=== PATIENT | male | born 1955 | race Two or more races ===

== ENCOUNTER 2016-07-28 06:57 | Day surgery (SDC) | payer MEDICARE ==
[2016-07-28] MEDS ORDERED: LIDOCAINE 1% W/EPI 1:200,000 MPF 30ML SQ ONE ×2 (12:25→13:23)
[2016-07-28] MEDS ORDERED: BUPIVACAINE 0.5% W/EPI MPF 30 ML VIAL IVP ONE ×2 (12:25→13:23)
[2016-07-28] MEDS ORDERED: DEXAMETHASONE PRESERVATIVE FREE 10MG/ML VIAL IV ONE ×2 (12:25→13:23)
[2016-07-28] MEDS ORDERED: FENTANYL PF 100MCG/2ML VIAL IV ONE (14:00)
[2016-07-28] MEDS ORDERED: *PACU ONLY* KETAMINE HCL 10 MG/ML (20ML) VIAL IV ONE (14:00)
[2016-07-28] MEDS ORDERED: MIDAZOLAM HCL 2MG/2ML VIAL IV ONE ×2 (14:00)
[2016-07-28] MEDS ORDERED: PROPOFOL 10 MG/ML VIAL IV ONE (14:00)
--- NOTE | 2016-07-29 11:10 | Operative Note ---
DATE OF SURGERY: 07/28/2016 PREOPERATIVE DIAGNOSIS: Cervical spondylosis without myelopathy, ICD10 M47.812. POSTOPERATIVE DIAGNOSIS: OPERATION: Radiofrequency rhizotomy, bilateral cervical facets 4-5, 5-6, 6-7 Anesthesia: Local sedation. Anesthesia Provider: Vanessa Rubin CRNA Indication: This patient presents with neck pain. Examination with attention to cervical spine, range of motion does cause pain in the neck with extension. Diagnostics show a primary 5-6 disk with osteophytic spur formation and multiple facet changes. Facet series and previous rhizotomy with a 90% pain control. Due to failure of all other therapies and the success of the previous facet and rhizotomy, he is here for repeat rhizotomy. PROCEDURE: Intravenous line, vital sign monitoring, IV sedation, prepped and draped in sterile technique with imaging, and the following performed. Cervical facet levels of at 4-5, 5-6, 6-7 were identified and marked bilaterally. Skin infiltrated. A 20 gauge rhizotomy cannula positioned. Stimulation trial was conducted. Rhizotomy burn performed. Local anti-inflammatory in this site. Topical antibiotic and sterile dressing applied. Will monitor and evaluate. DO LEONELA Genao
== END 2016-07-28 09:15 | disposition home or self-care (01) ==
LOC: SUR 06:57
PROVIDERS: ATTEND Pain Medicine Interventional Pain Medicine
DX: M47.812 Spondylosis without myelopathy or radiculopathy, cervical region (principal); I10 Essential (primary) hypertension
CPT/HCPCS: 64633; 64634 ×2; 01936; J1100; J3010

== ENCOUNTER 2017-03-23 07:17 | Day surgery (SDC) | payer MEDICARE ==
[2017-03-23] MEDS ORDERED: LIDOCAINE 2% MDV (20MG/ML) 20ML VIAL IV ONE (07:18)
[2017-03-23] MEDS ORDERED: FENTANYL PF 100MCG/2ML VIAL IV ONE (07:18)
[2017-03-23] MEDS ORDERED: BUPIVACAINE 0.75% W/EPI MPF 30ML VIAL IVP ONE (07:18)
[2017-03-23] MEDS ORDERED: DEXAMETHASONE PRESERVATIVE FREE 10MG/ML VIAL IV ONE (07:18)
[2017-03-23] MEDS ORDERED: MIDAZOLAM HCL 2MG/2ML VIAL IV ONE (07:18)
[2017-03-23] MEDS ORDERED: PROPOFOL 10 MG/ML VIAL IV ONE (07:18)
[2017-03-23] MEDS ORDERED: LIDOCAINE 1% W/EPI 1:200,000 MPF 30ML SQ ONE (07:18)
--- NOTE | 2017-03-24 05:28 | Operative Note - [facility] ---
DATE OF SURGERY: 03/23/2017. PREOPERATIVE DIAGNOSIS: CERVICAL SPONDYLOSIS WITHOUT MYELOPATHY, ICD-10 CODE M47.812. POSTOPERATIVE DIAGNOSIS: CERVICAL SPONDYLOSIS WITHOUT MYELOPATHY, ICD-10 CODE M47.812. OPERATION: Radiofrequency rhizotomy, bilateral cervical facets 5-6 and 6-7. SURGEON: Mike Medina D.O. ANESTHESIA: Local sedation. ANESTHESIA PROVIDER: Demarco Harrison CRNA INDICATION: This patient presents with cervical spine pain. Examination shows tenderness in the cervical spine. Range of motion causes pain in the neck with extension. Diagnostics show extensive spondylosis. A previous facet series provided greater than 75 percent pain control. Due to the failure of therapy, he is here for rhizotomy for more long-term relief. PROCEDURE: Intravenous line, vital sign monitoring, and intravenous sedation. Prepped and draped with sterile technique. Cervical facet levels at 5-6 and 6- 7 were identified and marked bilaterally. The skin was infiltrated and a 20- gauge rhizotomy canula was positioned. Stimulation trial was conducted and rhizotomy burn was performed. Local with anti-inflammatory into the sites. Topical antibiotic and sterile dressing were applied. Will monitor and evaluate. JOB NUMBER: [id number] cc: Per Howard M.D. MTDD
== END 2017-03-23 10:00 | disposition home or self-care (01) ==
LOC: SUR 07:17
PROVIDERS: ATTEND Pain Medicine Interventional Pain Medicine
DX: M47.812 Spondylosis without myelopathy or radiculopathy, cervical region (principal); I10 Essential (primary) hypertension
CPT/HCPCS: 64633; 64634; 01936; J1100

== ENCOUNTER 2017-10-26 07:21 | Day surgery (SDC) | payer MEDICARE ==
[2017-10-26] MEDS ORDERED: BUPIVACAINE 0.5% W/EPI MPF 30 ML VIAL IVP ONE (07:22)
[2017-10-26] MEDS ORDERED: LIDOCAINE 1% W/EPI 1:200,000 MPF 30ML SQ ONE (07:22)
--- NOTE | 2017-10-27 20:32 | Operative Note - [facility] ---
DATE OF SURGERY: 10/26/17 PREOPERATIVE DIAGNOSIS: CERVICAL SPONDYLOSIS WITHOUT MYELOPATHY, ICD-10 CODE = M47.812. SURGERY: 1. RADIOFREQUENCY RHIZOTOMY BILATERAL CERVICAL FACETS 5-6 AND 6-7. 2. GREATER OCCIPITAL NERVE BLOCK BILATERALLY. SURGEON: ADRIENNE MERCHANT D.O. ANESTHESIA: LOCAL SEDATION. ANESTHESIA PROVIDER: DOREEN SORIA CRNA INDICATIONS: This patient presents with neck pain. Examination showed tenderness in the cervical spine. Range of motion does cause pain in the next with extension. Diagnostic imaging showed extensive spondylosis. Due to the failure of therapies and the success of a facet series, the patient is here for rhizotomy for more termite treater helper relief. We are also blocking symptomatically the occipital nerves bilaterally. SURGERY: Intravenous line, vital sign monitoring, IV sedation by Anesthesia. Patient positioned prone. Sterile prep and sterile technique. Cervical facet levels at 5-6 and 6-7 were identified and marked bilaterally. Skin infiltrated. #20 gauge rhizotomy cannulae positioned, stimulation trials conducted. Rhizotomy burn performed. Local with anti-inflammatory into sites. Topical antibiotic and sterile dressing applied. A prep along the suboccipital rim. Using a #25 gauge needle, the greater occipital nerve was blocked, first left then right, with local anesthetic with corticosteroid. All areas cleaned. Topical antibiotic and sterile dressing applied. Will monitor and evaluate. cc: Dr. Per cardenas JOB NUMBER: [id number] MTDD
== END 2017-10-26 09:40 | disposition home or self-care (01) ==
LOC: SUR 07:21
PROVIDERS: ATTEND Pain Medicine Interventional Pain Medicine
DX: M47.812 Spondylosis without myelopathy or radiculopathy, cervical region (principal); I10 Essential (primary) hypertension; F98.8 Other specified behavioral and emotional disorders with onset usually occurring in childhood and adolescence

== ENCOUNTER 2018-05-12 08:45 | Day surgery (SDC) | payer MEDICARE ==
--- NOTE | 2018-05-11 17:32 | History and Physical - [place] ---
DATE OF EVALUATION: 05/11/18 CHIEF COMPLAINT/HISTORY OF CHIEF COMPLAINT: This patient with a history of a post lumbar laminectomy radiculopathy had a spinal cord stimulator trial conducted on 05/01/18 with 75 plus percent pain control. Due to the failure of other conservative therapies, physical therapy, biomechanical treatments did not work. Pain clinic treatments did not provide long-term success, and no further surgical options existed. He is here for implantation of a permanent system. PAST MEDICAL HISTORY: Hypertension. Chronic migraine headaches. PAST SURGICAL HISTORY: Hand surgery. Spinal surgery. FAMILY HISTORY: Coronary artery disease. Cerebrovascular disease. Hypertension. SOCIAL HISTORY: Noncontributory. PHYSICAL EXAMINATION: GENERAL: Height and weight are not known. VITAL SIGNS: Not available. HEENT: Within normal limits. LUNGS: Clear. HEART: Rapid and regular. ABDOMEN: Nontender. MUSCULOSKELETAL: Examination of the musculoskeletal system shows a surgical lumbar spinal scar midline. Range of motion produces pain throughout the low back and extending into both lower extremities across the front and back surface. There appear to be mild sensor motor loss and weakness in both lower extremities. An assist device is utilized. NEUROLOGIC: Cranial nerves are intact. IMPRESSION: POST LUMBAR LAMINECTOMY SYNDROME, ICD-10 CODE = M96.1 WITH RADICULOPATHY ICD-10 CODE = M54.16 AND M54.17. PLAN: The patient is here for implantation of a permanent spinal cord stimulator after the failure of conservative therapy and the success of the stimulator trial. The procedure will be considered outpatient, an overnight stay will be evaluated. cc: Dr. Per Howard JOB NUMBER: [id number] [facility]
[~2018-05-12 08:45] MED LIST: ACETAMINOPHEN 1,000 MG/100 ML BTL IV ONE; CEFAZOLIN 2 Gram 2 GM/50 ML BAG IVPB ONE; FAMOTIDINE 20MG TABLET PO ONE; MECLIZINE 25 MG TABLET PO ONE; METOCLOPRAMIDE 10 MG TABLET PO ONE
[2018-05-12] MEDS ORDERED: MIDAZOLAM HCL 2MG/2ML VIAL IV ONE (08:46)
[2018-05-12] MEDS ORDERED: BUPIVACAINE 0.5% W/EPI MPF 30 ML VIAL IVP ONE (08:46)
[2018-05-12] MEDS ORDERED: FENTANYL PF 100MCG/2ML VIAL IV ONE (08:46)
[2018-05-12] MEDS ORDERED: CEFAZOLIN 1G VIAL IM ONE (08:46)
[2018-05-12] MEDS ORDERED: PROPOFOL 10 MG/ML VIAL IV ONE (08:46)
[2018-05-12] MEDS ORDERED: METOPROLOL TART 5 MG/5 ML VIAL IV ONE (08:46)
[2018-05-12] MEDS ORDERED: LIDOCAINE 2% MDV (20MG/ML) 20ML VIAL IV ONE (08:46)
[2018-05-12] MEDS ORDERED: KETAMINE HCL 100MG/1ML VIAL INJ ONE (08:46)
[2018-05-12] MEDS ORDERED: LIDOCAINE 1% W/EPI 1:200,000 MPF 30ML SQ ONE (08:46)
[2018-05-12] MEDS ORDERED: HYDRALAZINE 20MG/ML VIAL IV ONE (08:46)
--- NOTE | 2018-05-12 16:40 | Operative Note ---
DATE: 05/12/2018. PREOPERATIVE DIAGNOSIS: 1. POSTLUMBAR LAMINECTOMY SYNDROME, ICD-10 CODE M96.1. 2. RADICULOPATHY, ICD-10 CODE M54.16 AND M54.17. PROCEDURES: 1. Fluoroscopically guided epidural access left T11-12. Placement of spinal cord stimulator lead 1, a [employer]on 16 with 16 electrodes, positioned left T7. 2. Fluoroscopically guided epidural access left T12-L1. Placement of spinal cord stimulator lead 2, a [employer]on 16 with 16 electrodes, positioned right T7. 3. Complex programming of lead 1 over 20 minutes followed by complex programming of lead 2 over 20 minutes. 4. Incision, subcutaneous dissection, and anchoring of leads 1 and 2 to the supraspinous fascia using a Sent[employer]i locking anchor. 5. Incision, subcutaneous dissection, and creation of subcutaneous pouch at the right flank for placement of generator identified as a [employer]i programmable rechargeable WaveWriter generator. 6. Tunnelling between pouches with placement of the external portions of lead 1 and lead 2 into generator pouch. Interfacing each lead to the generator. 7. Closure of both incisions using Stratafix suture; #2-0 for the fascia and #3 -0 for the skin. Dermabond closure. 8. Complex recovery room programming of the internal generator for home use, two stimulators, for 20 minutes. SURGEON: Mike Medina D.O. ANESTHESIOLOGY: Devora Ely CRNA. INDICATIONS: This patient presents with a history of intractable postlumbar laminectomy radiculopathy. Due to the failure of all therapies and the success of the stimulator trial, a spinal cord stimulator trial was conducted with 75 to 85 percent pain control. Due to the failure of all therapies and the success of the stimulator trial, the patient presents today for implantation of a permanent system. DESCRIPTION OF PROCEDURE: Intravenous lines, vital sign monitoring, and intravenous sedation. Prepped and draped with sterile technique. The patient was positioned prone. From the left the epidural interspaces at 11-12 and T12- L1 were marked and infiltrated. Using Epimed needles with loss of resistance the epidural spaces were accessed. At 11-12, spinal cord stimulator lead 1, a [employer] Infineon 16 with 16 electrodes, was positioned left at T7. With the access at 12-1, spinal cord stimulator lead 2, a [employer]on 16 with 16 electrodes was positioned right at T7. Complex programming of lead 1 over 20 minutes was followed by complex programming of lead 2 over 20 minutes. This resulted in complete patterns of stimulation across the back and into the legs. The patient indicated we were in all of the areas of the pain. He was given the options to implant, continue to program, or remove. He opted to implant. The questions were repeated with the same response. The skin above and below both needles was infiltrated. An incision was made, and subcutaneous dissection was conducted to the supraspinous fascia. The needles were removed, and each lead was anchored to the fascia with nonabsorbable suture and a Sent[employer]i locking anchor. At the right posterior gluteal margin, the site picked by the patient for the generator, the skin was infiltrated. An incision was made and subcutaneous dissection was conducted to form a pouch of suitable size and depth for the generator. A tunneling tool was used to carry the leads into the generator pouch, and then each lead was interfaced to the generator. Antibiotic irrigation and Bovie for hemostasis. The generator was placed in its own pouch and the leads were placed into their pouch. Both incisions were then closed using Stratafix suture ; #2-0 for the fascia and #3-0 for the skin. Dermabond closure was then used to approximate the edges of both wounds. He was transported to the recovery room stable with no side effects from the procedure or the sedation. When fully awake and alert, complex programming of the generator was performed in the recovery room for 20 minutes, re- establishing stimulation. At that point, he was instructed on use of the system and was prepared for discharge. DISCHARGE INSTRUCTIONS: 1. The sites are to remain clean and dry. He may shower as the dressing is water impermeable, but he cannot sit in water; no bath. 2. Standard medications to be resumed including the antibiotic Levaquin 500 mg once a day for 14 days. 3. The office will contact the patient in 24 to 48 hours to set up an appointment in 7 to 10 days to evaluate the sites. Until then he is to keep his activities low. 4. All other instructions were provided including numbers to contact with problems. He was then prepared for discharge. JOB NUMBER: [id number] cc: Valerie Fox
--- NOTE | 2018-05-14 21:17 | RADIOLOGY REPORT ---
EXAM: SPINE, 1 VIEW HISTORY: SPINAL CORD STIMULATOR. TECHNIQUE: Single frontal view of the spine. COMPARISON: No recent comparisons. FINDINGS: Spinal stimulator leads superimpose the mid thoracic spine. Please see procedural report for additional details. Partially seen lower lumbar spinal fusion hardware. Degenerative changes in the thoracic and lumbar spine, incompletely assessed. IMPRESSION: ABOVE. JOB NUMBER: [id number] MTDD
== END 2018-05-12 13:10 | disposition home or self-care (01) ==
LOC: SUR 08:45
PROVIDERS: ATTEND Pain Medicine Interventional Pain Medicine
DX: M96.1 Postlaminectomy syndrome, not elsewhere classified (principal); M54.16 Radiculopathy, lumbar region; M54.17 Radiculopathy, lumbosacral region; I10 Essential (primary) hypertension; J44.9 Chronic obstructive pulmonary disease, unspecified; D89.89 Other specified disorders involving the immune mechanism, not elsewhere classified
CPT/HCPCS: 63685; 63650 ×2; 01936; 95972; 72020; J3010; J0690; J3490; C1820; C1883

== ENCOUNTER 2018-08-23 08:07 | Day surgery (SDC) | payer MEDICARE ==
[2018-08-23] MEDS ORDERED: FENTANYL PF 100MCG/2ML VIAL IV ONE (08:08)
[2018-08-23] MEDS ORDERED: LIDOCAINE 2% MDV (20MG/ML) 20ML VIAL IV ONE (08:08)
[2018-08-23] MEDS ORDERED: BUPIVACAINE 0.5% W/EPI MPF 30 ML VIAL IVP ONE (08:08)
[2018-08-23] MEDS ORDERED: MIDAZOLAM HCL 2MG/2ML VIAL IV ONE (08:08)
[2018-08-23] MEDS ORDERED: PROPOFOL 10 MG/ML VIAL IV ONE (08:08)
[2018-08-23] MEDS ORDERED: LIDOCAINE 1% W/EPI 1:200,000 MPF 30ML SQ ONE (08:08)
[2018-08-23] MEDS ORDERED: DEXAMETHASONE PRESERVATIVE FREE 10MG/ML VIAL IV ONE (08:08)
[2018-08-23] MEDS ORDERED: KETAMINE HCL 100MG/1ML VIAL INJ ONE (08:08)
--- NOTE | 2018-08-25 13:17 | Operative Note ---
DATE OF SURGERY: 08/23/2018. PRIMARY CARE PHYSICIAN: Per Howard M.D. PREOPERATIVE DIAGNOSIS: CERVICAL SPONDYLOSIS WITHOUT MYELOPATHY, ICD-10 CODE M47.812. POSTOPERATIVE DIAGNOSIS: CERVICAL SPONDYLOSIS WITHOUT MYELOPATHY, ICD-10 CODE M47.812. PROCEDURE: Radiofrequency rhizotomy was performed of the bilateral cervical facets at C3-4 and 4-5. ANESTHESIA: Local sedation. ANESTHESIA PROVIDER: Devora Ely CRNA. INDICATIONS: This patient presents with primary neck pain. Examination shows tenderness in the cervical spine. Range of motion does cause pain to the neck with extension. Diagnostic studies show diffuse, multilevel facet spondylosis. A facet series with previous rhizotomies resulted in 75 to 90 percent pain control. Due to the failure of therapy and after the appropriate authorization process, he is here for repeat rhizotomy. DESCRIPTION OF PROCEDURE: Intravenous lines, vital sign monitoring, and intravenous sedation. Prepped and draped with sterile technique with the patient positioned prone. Under imaging the cervical facets at 3-4 and 4-5 were identified and marked bilaterally. The skin was infiltrated. A 20-gauge rhizotomy cannula was positioned. Stimulation trial was conducted, and rhizotomy burn was performed at 80 degrees for 90 seconds at each site bilaterally. Local with anti-inflammatory into the sites. Topical antibiotic and sterile dressing applied. Will monitor and evaluate. Job Number: [id number] cc: Per Howard M.D. MTDD
== END 2018-08-23 10:08 | disposition home or self-care (01) ==
LOC: SUR 08:07
PROVIDERS: ATTEND Pain Medicine Interventional Pain Medicine
DX: M47.812 Spondylosis without myelopathy or radiculopathy, cervical region (principal); I10 Essential (primary) hypertension; F98.8 Other specified behavioral and emotional disorders with onset usually occurring in childhood and adolescence; D89.89 Other specified disorders involving the immune mechanism, not elsewhere classified; Z87.891 Personal history of nicotine dependence
CPT/HCPCS: J3490